=== PATIENT | female | born 1960 | race African-American/Black ===

== ENCOUNTER 2018-02-18 08:16 | Emergency (ER) | payer OTHER ==
--- OUTSIDE RECORDS SUMMARY | 2018-02-18 08:17 | XMS REPORT | Clinical Summary ---
:1960 Author Organization [facility] Address [address] [place] [address] Care Team Providers Name Role Phone Pamela Starks Primary Care Provider Allergies Active Allergy Reactions Severity Noted Date Comments Povidone-Iodine Other (See Comments) 06/29/2016 Blisters Codeine Itching 06/15/2016 Ibuprofen GI Intolerance 06/15/2016 At high doses Sulfa (Sulfonamide Rash Low 06/15/2016 Antibiotics) Current Medications Prescription Sig. Disp. Refills Start Date End Date Status losartan-hydrochlorothiaz Take 1 tablet by Active griselda (HYZAAR) 50-12.5 mg mouth daily. per tablet buPROPion XL (WELLBUTRIN Take 150 mg by Active XL) 150 MG 24 hr tablet mouth daily. meloxicam (MOBIC) 15 MG Take 15 mg by mouth Active tablet daily. biotin 10,000 mcg capsule Take 1 capsule by Active mouth daily. pyvonaxf-cnrd-pwdk-FA-K-h Take 1 tablet by Active b#244 (ALIVE WOMEN'S mouth daily. ENERGY) 18-400-80 mg-mcg-mcg tablet promethazine (PHENERGAN) Take 25 mg by mouth Active 25 MG tablet every 8 (eight) hours as needed for nausea or vomiting. ondansetron ODT Take 8 mg by mouth Active (ZOFRAN-ODT) 8 MG every 8 (eight) disintegrating tablet hours as needed for nausea or vomiting. promethazine (PHENERGAN) Insert 25 mg into Active 25 MG suppository the rectum 3 (three) times a day as needed for nausea or vomiting. oxyCODone (OxyCONTIN) 20 Take 20 mg by mouth Active MG 12 hr tablet every 12 (twelve) hours as needed for moderate pain. pregabalin (LYRICA) 300 Take 300 mg by Active MG capsule mouth 2 (two) times a day. budesonide-formoterol Inhale 2 puffs 2 Active (SYMBICORT) 80-4.5 (two) times a day. mcg/actuation inhaler calcium carbonate-vitamin Take 1 capsule by Active D3 600 mg(1,500mg) -400 mouth daily. unit capsule Active Problems Problem Noted Date Chest pain 07/02/2016 NSTEMI (non-ST elevated myocardial infarction) 07/02/2016 Social History Tobacco Use Types Packs/Day Years Used Date Never Smoker Alcohol Use Drinks/Week oz/Week Comments No Sex Assigned at Date Recorded Not on file Last Filed Vital Signs Not on file Plan of Treatment Health Maintenance Due Date Last Done Comments CERVICAL CANCER SCREENING 1982 COLON CANCER SCREENING 11/21/2011 SHINGRIX VACCINE (#1) 11/21/2011 BREAST CANCER SCREENING 11/11/2015 11/11/2013 INFLUENZA VACCINE 04/18/2018 Implants Implanted Type [employer] Device Expiration Model / Identifier Date Serial / Lot Pump Infsn Synchromed Ii W/ Fltr Sut Loop Prgrmbl Rsvr 20ml - [id number] Neurosurgical N/A: [employer] 11/15/2017 [id number] / Implanted: Qty: 1 on 06/29/2016 by Compa Zuniga MD Implants Abdomen, NEUROMODULATION / Middle N/A Quadrant/N on Specific Explanted Type [employer] Device Identifier Expiration Date Model / Serial / Lot Pain Pump Results Not on fileafter 02/17/2017 Insurance Payer Benefit Plan / Group Subscriber ID Type Phone Address [facility] xxxxxxxx O
[2018-02-18 09:16] LABS: Urine Blood 2+ (NEG); Urine Glucose NEGATIVE (NEG); Urine Protein NEGATIVE (NEG)
[2018-02-18 09:18] LABS: Urine Bacteria <20 /HPF (<20); Urine Culture Reflex Order NOT NEEDED
--- NOTE | 2018-02-18 10:08 | RAD REPORT ---
EXAM DESCRIPTION: CT - Stone Protocol - 02/18/2018 9:43 am CLINICAL HISTORY: Abdominal pain. Bilateral flank pain. Urinary tract infection. COMPARISON: None. TECHNIQUE: Computed axial tomography of the abdomen pelvis was obtained without oral or IV contrast. Lack of IV and oral contrast limits evaluation of solid organs, bowel, and vessels. Coronal reformat eulalio images were obtained and reviewed. All CT scans are performed using dose optimization technique as appropriate and may include automated exposure control or mA/KV adjustment according to patient size. FINDINGS: A renal calculus is not seen. An ureteral calculus is not noted. A bladder calculus is not present. A 10 millimeter low-density lesion is nonspecific without IV contrast within the left lobe of the gilda er. Most likely represents a cyst Spleen, pancreas and adrenals appear grossly normal There is no evidence of diverticulitis. The appendix is not clearly seen. A neurostimulator device is in place. A small umbilical hernia contains fat. Moderate amount of stool is present throughout the colon A small amount of free fluid is present within the pelvis. A hysterectomy has been performed IMPRESSION: Negative for a genitourinary calculus Small amount of free fluid within the pelvis
--- NOTE | 2018-02-18 10:22 | ER ---
Nurse's Notes [facility] Name: Wandy Green Age: 57 yrs Sex: Female : 1960 Arrival Date: 02/18/2018 Time: 08:17 Bed 16 Private MD: None, None Diagnosis: Low back pain Presentation: 02/18 08:30 Presenting complaint: Patient states: diagnosed with UTI 3 days ago and prescribed sv Cipro, pain has increased. c/o bilateral back pain, suprapubic pain. Transition of care: patient was not received from another setting of care. Onset of symptoms was February 15, 2018. Risk Assessment: Do you want to hurt yourself or someone else? Patient reports no desire to harm self or others. Care prior to arrival: None. 08:30 Method Of Arrival: Wheelchair sv 08:30 Acuity: AMARI 3 sv 10:45 Initial Sepsis Screen: Does the patient meet any 2 criteria? No. Patient's initial em sepsis screen is negative. Does the patient have a suspected source of infection? No. Patient's initial sepsis screen is negative. 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 - Social history:: Smoking status: Patient/guardian denies using tobacco, Patient/guardian denies using alcohol, street drugs, IV drugs. - Ebola Screening: : No symptoms or risks identified at this time. Screenin:56 Abuse screen: Denies threats or abuse. Nutritional screening: No deficits noted. em Tuberculosis screening: No symptoms or risk factors identified. Fall Risk None identified. Assessment: 09:00 General: Appears in no apparent distress. uncomfortable, Behavior is calm, cooperative. em Pain: Complains of pain in left lower back, right lower back and abdomen. Neuro: Level of Consciousness is awake, alert, obeys commands, Oriented to person, place, time, situation. Cardiovascular: Capillary refill < 3 seconds Patient's skin is warm and dry. Respiratory: Airway is patent Respiratory effort is even, unlabored, Respiratory pattern is regular, symmetrical. GI: Abdomen is round non-distended, Abd is soft X 4 quads Abdomen is tender to palpation in right upper quadrant and right lower quadrant. : Reports burning with urination, pain in suprapubic area. EENT: No signs and/or symptoms were reported regarding the EENT system. Derm: Skin is intact, Skin is pink, warm \T\ dry. Musculoskeletal: Range of motion: intact in all extremities. 09:05 General: The previous assessment is accurate, call light remains within reach. . ss 09:40 Reassessment: Patient appears in no apparent distress at this time. pt wheeled to CT em via wheelchair. 09:57 Reassessment: Patient appears in no apparent distress at this time. pt request pain em medication, Dr. Villanueva notified, no new orders received. 10:16 Reassessment: Patient appears in no apparent distress at this time. Patient and/or em family updated on plan of care and expected duration. Pain level reassessed. Patient is alert, oriented x 3, equal unlabored respirations, skin warm/dry/pink. Vital Signs: 08:36 BP 142 / 84; Pulse 62; Resp 18; Temp 97.1(TE); Pulse Ox 100% on R/A; Weight 82.55 kg; sv Height 5 ft. 3 in. (160.02 cm); Pain 10/10; 10:26 BP 126 / 64; Pulse 57; Resp 14; Pulse Ox 100% on R/A; mh5 10:46 BP 132 / 69; Pulse 59; Resp 16; Pulse Ox 100% on R/A; em 08:36 Body Mass Index 32.24 (82.55 kg, 160.02 cm) sv ED Course: 08:17 Patient arrived in ED. sb2 08:17 None, None is Private Physician. sb2 08:24 Joaquín Villanueva MD is Attending Physician. gs 08:34 Triage completed. sv 08:35 Roger Hoover LVN is Primary Nurse. em 08:37 Arm band placed on right wrist. sv 08:52 Urine Microscopic Only Sent. mh5 08:52 Urine collected: clean catch specimen, shaun colored. mh5 09:[address] via wheelchair. cw1 09:42 CT completed. Patient moved back from CT. cw1 09:43 CT Stone Protocol In Process Unspecified. EDMS 09:56 No provider procedures requiring assistance completed. em 10:17 Patient has correct armband on for positive identification. Placed in gown. Bed in low em position. Call light in reach. Adult w/ patient. 10:46 Patient did not have IV access during this emergency room visit. em Administered Medications: No medications were administered Outcome: 10:21 Discharge ordered by . 10:46 Discharged to home ambulatory. em 10:46 Condition: good 10:46 Discharge instructions given to patient, family, Instructed on discharge instructions, follow up and referral plans. Demonstrated understanding of instructions, follow-up care. 10:47 Patient left the ED. em Signatures: Dispatcher [employer] Suzanne Nevarez, RN RN Roger Sykes, RADIOLOGICAL HEALTH SPECIALIST RADIOLOGICAL HEALTH SPECIALIST em Mely Castro RN RN ss Woodley, Awa cw1 Pratima Rao 5 Joaquín Villanueva MD MD gs Billeau, Sheri 2
--- NOTE | 2018-02-18 10:22 | EDPHYS ---
Physician Documentation [facility] Name: Wandy Green Age: 57 yrs Sex: Female : 1960 Arrival Date: 02/18/2018 Time: 08:17 Bed 16 Private MD: None, None ED Physician Joaquín Villanueva HPI: 02/18 12:48 This 57 yrs old Black Female presents to ER via Wheelchair with complaints of BLADDER gs INFECTION. 12:48 The patient complains of pain in the left low back and right low back. The pain does gs not radiate. Onset: The symptoms/episode began/occurred 5 day(s) ago, and became persistent. Modifying factors: the symptoms are aggravated by movement. Associated signs and symptoms: Pertinent positives: dysuria, Pertinent negatives: hematuria, pain radiating to the lower extremities. Severity of pain: At its worst the pain was moderate in the emergency department the pain is unchanged. The patient has experienced similar episodes in the past, several times. The patient has been recently seen by a physician: with similar presenting complaints, was given a prescription for antibiotics, uti dx. 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 - Social history:: Smoking status: Patient/guardian denies using tobacco, Patient/guardian denies using alcohol, street drugs, IV drugs. - Ebola Screening: : No symptoms or risks identified at this time. ROS: 12:48 All other systems are negative. gs Exam: 12:48 Head/Face: Normocephalic, atraumatic. Eyes: Pupils equal round and reactive to light, gs extra-ocular motions intact. Lids and lashes normal. Conjunctiva and sclera are non-icteric and not injected. Cornea within normal limits. Periorbital areas with no swelling, redness, or edema. ENT: Nares patent. No nasal discharge, no septal abnormalities noted. Tympanic membranes are normal and external auditory canals are clear. Oropharynx with no redness, swelling, or masses, exudates, or evidence of obstruction, uvula midline. Mucous membranes moist. Neck: Trachea midline, no thyromegaly or masses palpated, and no cervical lymphadenopathy. Supple, full range of motion without nuchal rigidity, or vertebral point tenderness. No Meningismus. Chest/axilla: Normal chest wall appearance and motion. Nontender with no deformity. No lesions are appreciated. Cardiovascular: Regular rate and rhythm with a normal S1 and S2. No gallops, murmurs, or rubs. Normal PMI, no JVD. No pulse deficits. Respiratory: Lungs have equal breath sounds bilaterally, clear to auscultation and percussion. No rales, rhonchi or wheezes noted. No increased work of breathing, no retractions or nasal flaring. Abdomen/GI: Soft, non-tender, with normal bowel sounds. No distension or tympany. No guarding or rebound. No evidence of tenderness throughout. Skin: Warm, dry with normal turgor. Normal color with no rashes, no lesions, and no evidence of cellulitis. MS/ Extremity: Pulses equal, no cyanosis. Neurovascular intact. Full, normal range of motion. Neuro: Awake and alert, GCS 15, oriented to person, place, time, and situation. Cranial nerves II-XII grossly intact. Motor strength 5/5 in all extremities. Sensory grossly intact. Cerebellar exam normal. Normal gait. 12:48 Constitutional: The patient appears in no acute distress, alert, awake. 12:48 Back: CVA tenderness, that is moderate, is noted bilaterally. Vital Signs: 08:36 BP 142 / 84; Pulse 62; Resp 18; Temp 97.1(TE); Pulse Ox 100% on R/A; Weight 82.55 kg; sv Height 5 ft. 3 in. (160.02 cm); Pain 10/10; 10:26 BP 126 / 64; Pulse 57; Resp 14; Pulse Ox 100% on R/A; mh5 10:46 BP 132 / 69; Pulse 59; Resp 16; Pulse Ox 100% on R/A; em 08:36 Body Mass Index 32.24 (82.55 kg, 160.02 cm) sv MDM: 08:30 Patient medically screened. gs 12:48 Differential diagnosis: pyelonephritis, UTI, back pain chronic. Data reviewed: vital gs signs, nurses notes. Counseling: I had a detailed discussion with the patient and/or guardian regarding: lab results, radiology results, the need for outpatient follow up. Response to treatment: the patient's symptoms have markedly improved after treatment, and as a result, I will discharge patient. 02/18 08:24 Order name: Urine Microscopic Only; Complete Time: 09:23 gs 02/18 09:00 Order name: Urine Dipstick--Ancillary (enter results); Complete Time: 09:23 em1 02/18 08:24 Order name: Urine Dipstick-Ancillary (obtain specimen); Complete Time: 08:51 gs 02/18 09:00 Order name: Urine --Ancillary (enter results); Complete Time: 09:23 em1 02/18 09:23 Order name: CT Stone Protocol; Complete Time: 10:20 gs Administered Medications: No medications were administered Disposition: 02/18/18 10:21 Discharged to Home. Impression: Low back pain. - Condition is Stable. - Discharge Instructions: Back Pain, Adult. - Medication Reconciliation Form, Thank You Letter, Antibiotic Education, Prescription Opioid Use form. - Follow up: Private Physician; When: 2 - 3 days; Reason: Re-evaluation by your physician. Signatures: Dispatcher [employer] Suzanne Nevarez RN RN sv Munoz, Edgar, LVN LVN Joaquín Gamble MD MD Corrections: (The following items were deleted from the chart) 10:47 10:21 02/18/2018 10:21 Discharged to Home. Impression: Low back pain. Condition is em Stable. Forms are Medication Reconciliation Form, Thank You Letter, Antibiotic Education, Prescription Opioid Use. Follow up: Private Physician; When: 2 - 3 days; Reason: Re-evaluation by your physician. gs
== END 2018-02-18 10:47 | disposition home or self-care (01) ==
LOC: ER 08:16
DX: M54.5 Low back pain (principal); Z88.2 Allergy status to sulfonamides; Z88.5 Allergy status to narcotic agent; Z88.6 Allergy status to analgesic agent
CPT/HCPCS: 74176; 76377; 81003; 81015; 81025; 99284